=== PATIENT | male | born 1950 | race Caucasian/White ===

== ENCOUNTER 2020-02-26 19:32 | Emergency (ER) | payer OTHER, MEDICAID ==
[~2020-02-26] VITALS: Ht 167.6 cm; Wt 82.6 kg
[~2020-02-26 19:32] MED LIST: FAMO-90 PO; MULT-1469 PO; SIMV20TA1 PO; SITA50TA3 PO
[2020-02-26 19:56] VITALS: BP 149/96
[2020-02-26] MEDS ORDERED: INDOMETHACIN 25 MG CAP PO ONE (20:35)
[2020-02-26] MEDS ORDERED: IBUPROFEN 800 MG TAB PO ONE (20:45)
[2020-02-26] MEDS ORDERED: COLCHICINE 0.6 MG TAB PO ONE (20:55)
[2020-02-26] MEDS ORDERED: HYDROcodone/APAP 5/325 MG 1 TAB TAB PO ONE (21:30)
[2020-02-26 21:48] VITALS: BP 149/96
== END 2020-02-26 21:48 | disposition home or self-care (01) ==
LOC: MED 19:32
DX: M10.9 Gout, unspecified (principal); I11.0 Hypertensive heart disease with heart failure; E78.00 Pure hypercholesterolemia, unspecified; Z88.0 Allergy status to penicillin; Z79.899 Other long term (current) drug therapy
CPT/HCPCS: 99283